=== PATIENT | female | born 1985 ===

== ENCOUNTER 2020-12-16 05:50 | Day surgery (SDC) | payer OTHER | END 2020-12-16 15:20 | disposition home or self-care (01) | LOC: AMB-ENDOS 05:50 | PROVIDERS: ATTEND Surgery | DX: D13.1 Benign neoplasm of stomach (principal); K44.9 Diaphragmatic hernia without obstruction or gangrene; Z20.822 Contact with and (suspected) exposure to COVID-19 ==